=== PATIENT | male | born 1965 | race Hispanic/Latino ===

== ENCOUNTER 2017-11-20 18:48 | Emergency (ER) | payer MEDICAID, OTHER ==
[2017-11-20] MEDS ORDERED: Permethrin 1% Kit 59 ML BOTTLE TOP STA (19:16)
[2017-11-20] MEDS ORDERED: Permethrin 1% Kit 59 ML BOTTLE TOP ONE (19:30)
[2017-11-20 19:49] VITALS: BP 119/58; PULSE 68; RESP 16; TEMP 98.1; O2SAT 99
--- NOTE | 2017-11-20 19:50 | C.PDOC ---
History Of Present Illness 52 y/o male presents to the ED requesting orthopedic follow up. He is also c/o diffuse itching and thinks he has head lice. The patient was seen in ER on , diagnosed with right distal radius fracture and placed in splint. He was instructed to see followup with Dr. Campuzano in orthpedic clinic on friday, but states he did not go. Time Seen by Provider: 11/20/17 19:14 Chief Complaint (Nursing): Upper Extremity Problem/Injury History Per: Patient History/Exam Limitations: no limitations Onset/Duration Of Symptoms: Days Current Symptoms Are (Timing): Still Present Quality: "Pain" Severity: Mild Additional History Per: Patient Past Medical History Reviewed: Historical Data, Nursing Documentation, Vital Signs Vital Signs: Last Vital Signs Temp 98.1 F 11/20/17 19:49 Pulse 68 11/20/17 19:49 Resp 16 11/20/17 19:49 BP 119/58 L 11/20/17 19:49 Pulse Ox 99 11/20/17 19:49 - Medical History PMH: No Chronic Diseases Surgical History: No Surg Hx Family History: States: No Known Family Hx - Social History Hx Alcohol Use: Yes Hx Substance Use: No - Immunization History Hx Tetanus Toxoid Vaccination: No Hx Influenza Vaccination: No Hx Pneumococcal Vaccination: No Review Of Systems Except As Marked, All Systems Reviewed And Found Negative. Constitutional: Negative for: Fever Cardiovascular: Negative for: Chest Pain Respiratory: Negative for: Cough, Shortness of Breath Gastrointestinal: Negative for: Nausea, Vomiting Musculoskeletal: Positive for: Other (right distal radius fx) Skin: Negative for: Rash Physical Exam - Physical Exam Appears: Well, Non-toxic, Unkempt, Other (alert, awake and alert) Skin: Normal Color, Warm, Dry Head: Normacephalic Eye(s): bilateral: Normal Inspection Oral Mucosa: Moist Neck: Supple Cardiovascular: Rhythm Regular Respiratory: Normal Breath Sounds, No Rales, No Rhonchi, No Wheezing Gastrointestinal/Abdominal: Normal Exam, Bowel Sounds, Soft, No Tenderness, No Guarding, No Rebound Back: Normal Inspection Extremity: Normal ROM, Capillary Refill (2<sec all digits ), Other (right forearm in splint) Neurological/Psych: Oriented x3, Normal Sensation Gait: Steady ED Course And Treatment O2 Sat by Pulse Oximetry: 99 (RA) Pulse Ox Interpretation: Normal Progress Note: Patient showered and given Nix treatment in ED. He was once again instructed to follow up with orthopedics at ortho clinic on friday, and he was given Rxs for NIx and pain medication. He understands he should return to ED if symptoms worsen. Reevaluation Time: 21:00 Reassessment Condition: Improved Disposition Counseled Patient/Family Regarding: Studies Performed, Diagnosis, Need For Followup, Rx Given - Disposition Referrals: Best Campuzano III, MD [Staff Provider] - [facility] [Outside] Disposition: HOME/ ROUTINE Disposition Time: 21:00 Condition: STABLE Additional Instructions: YOU NEED TO FOLLOW UP WITH ORTHPEDICS CLINIC ON FRIDAY!! RETURN TO ER IF SYMPTOMS WORSEN Prescriptions: Acetaminophen with Codeine [Tylenol with Codeine #3 Tablet] 1 each PO Q6 PRN # 12 tablet PRN Reason: pain Permethrin 1% Kit [Nix Complete Lice Elimination Kit 1%] 1 appl TOP DAILY #1 bottle Instructions: Arm Fracture in Adults (ED), Body Lice (ED) Forms: [employer] (Latvian) Print Language: [place] - Clinical Impression Clinical Impression: Distal radius fracture, Lice - Scribe Statement The provider has reviewed the documentation as recorded by the Scribe Bri Hatch
== END 2017-11-20 21:40 | disposition home or self-care (01) ==
LOC: C.ER 18:48
DX: B85.2 Pediculosis, unspecified (principal); S52.501A Unspecified fracture of the lower end of right radius, initial encounter for closed fracture; X58.XXXA Exposure to other specified factors, initial encounter